=== PATIENT | female | born 1950 | race Caucasian/White ===

== ENCOUNTER → 2016-11-29 | Outpatient (CLI) | payer MEDICARE ==
[~2016-11-29] MED LIST: ASPI-558 PO; ATOR20TA59 PO; BENZ100C97 PO; DEXT30SU4 PO; FISH1CAP2 PO; HYDR-4246 PO; IRON18TA PO; METF500T4 PO; METH-310 PO; OMEP40CA30 PO; OMEP40CA52 PO; SALINE FLUSH 10ml SYRINGE ONE; VITA1CAP PO; [UNRECOGNIZED DRUG - CODE] PO
--- NOTE | 2016-11-29 15:29 | DI ---
Indication: ITS.REASON: M25.551 PAIN IN RIGHT HIP PROCEDURE: NM BONE SCAN, 3-PHASE: Encounter: Initial Comparison: Radiographs dated November 26, 2016 Technique: 25.3 mCi of Tc-99m MDP was administered intravenously. Anterior and posterior planar spot images of the hips were obtained in the arterial, blood pool and delayed phases. Lateral projections were performed in the blood pool and delayed phases. FINDINGS: The scan demonstrates the expected normal biodistribution for the radiotracer. No areas of abnormal tracer uptake seen on the arterial phase imaging. Photopenic defects from extensive right femoral and hip hardware. No areas of abnormal uptake seen on the blood pool images. Delayed phase imaging shows mild presumed degenerative uptake in the left hip joint without focal tracer activity in the right femur or acetabular region. There is some probable mild degenerative uptake in the left SI joint region as well. Impression: No bone scan evidence of prosthetic loosening or infection. .
== END ==
LOC: IMA 12:12
PROVIDERS: ATTEND Orthopaedic Surgery
DX: M25.551 Pain in right hip (principal)
CPT/HCPCS: 78315; A9503